=== PATIENT | male | born 1935 | race Caucasian/White ===

== ENCOUNTER 2016-11-08 15:33 | Emergency (ER) | payer MEDICARE, OTHER ==
[2016-11-08] MEDS ORDERED: ASPIRIN 81 MG TABLET, CHEWABLE PO ONE (15:46)
[2016-11-08 16:33] LABS: ABSOLUTE BASOPHILS # (AUTO) 0.1 10^3/uL (0.0-0.2); ABSOLUTE EOSINOPHILS # (AUTO) 0.1 10^3/uL (0.0-0.6); ABSOLUTE LYMPHOCYTES (AUTO) 1.7 10^3/uL (0.5-4.7); ABSOLUTE MONOCYTES (AUTO) 1.2 10^3/uL (0.1-1.4); ABSOLUTE NEUT (AUTO) 6.3 10^3/uL (1.7-8.2); BASOPHILS % (AUTO) 0.6 % (0-2); HEMATOCRIT 36.8 % (37.9-51.0); HEMOGLOBIN 12.6 g/dL (13.5-17.0); LYMPHOCYTES % (AUTO) 18.2 % (13-45); MEAN CORPUSCULAR HEMOGLOBIN 31.3 pg (27.0-33.4); MEAN CORPUSCULAR HGB CONC 34.3 g/dL (32.0-36.0); MEAN CORPUSCULAR VOLUME 91 fl (80-97); MONOCYTES % (AUTO) 12.7 % (3-13); RED BLOOD COUNT 4.03 10^6/uL (4.35-5.55); RED CELL DISTRIBUTION WIDTH 13.4 % (11.5-14.0); SEGMENTED NEUTROPHILS % (AUTO) 67.5 % (42-78); WHITE BLOOD COUNT 9.4 10^3/uL (4.0-10.5)
[2016-11-08 17:42] LABS: ALANINE AMINOTRANSFERASE 32 U/L (21-72); ALBUMIN 4.2 g/dL (3.5-5.0); ALKALINE PHOSPHATASE 94 U/L (38-126); ANION GAP 11 (5-19); ASPARTATE AMINO TRANSFERASE 23 U/L (17-59); BILIRUBIN,TOTAL 0.9 mg/dL (0.2-1.3); BLOOD UREA NITROGEN 19 mg/dL (7-20); CALCIUM 9.4 mg/dL (8.4-10.2); CARBON DIOXIDE 26 mmol/L (22-30); CHLORIDE 103 mmol/L (98-107); CREATINE KINASE 52 U/L (55-170); CREATININE RESULT 1.04 mg/dL (0.52-1.25); GLUCOSE 155 mg/dL (75-110); POTASSIUM 4.2 mmol/L (3.6-5.0); SODIUM 139.9 mmol/L (137-145); TOTAL PROTEIN 7.1 g/dL (6.3-8.2)
[2016-11-08 17:53] LABS: CREATINE KINASE MB 0.68 ng/mL (<4.55)
[2016-11-08 17:58] LABS: TROPONIN I 0.09 ng/mL
--- NOTE | 2016-11-08 21:50 | EKG REPORT ---
SEVERITY:- ABNORMAL ECG - ATRIAL FIBRILLATION INFERIOR INFARCT, AGE INDETERMINATE : Confirmed by: Patricio Jerry 08-Nov-2016 21:50:02
--- NOTE | 2016-11-08 21:50 | EKG REPORT ---
SEVERITY:- ABNORMAL ECG - SINUS RHYTHM PROBABLE INFERIOR INFARCT, AGE INDETERMINATE : Confirmed by: Patricio Jerry 08-Nov-2016 21:49:51
--- NOTE | 2016-11-08 22:10 | ER Document Report ---
ED General - General Chief Complaint: Chest Pain Stated Complaint: CHEST PAIN Mode of Arrival: Medic Information source: Patient, Relative Cannot obtain history due to: Dementia Notes: This is an 81-year-old gentleman who was brought from [facility] via EMS for concern of chest pain. Of note patient does have dementia and the history is limited. The majority of the history is obtained from his . Apparently the patient suffered a myocardial infarction one week ago today. Eyes, he was airlifted from the [facility] ER to [facility] where he went to the [facility] and received one stent. He was discharged 4 days ago to the rehabilitation facility. Today at about 1400 the patient's states that she found him in bed at the rehabilitation center in that he appeared uncomfortable. He stated that he looked pale and was acting chest as he did one week ago during his AR. He reported chest pain at the time. He was given sublingual nitroglycerin which resolved his symptoms. Transported to the ER for evaluation. He currently states that he feels fine and has no chest pain. states that he is at his normal baseline mental status at this point. - Related Data Allergies/Adverse Reactions: No Known Allergies Allergy (Unverified 08/17/12 18:17) Past Medical History - General Information source: Relative, [facility] Records - Social History Smoking Status: Unknown if Ever Smoked Family History: Reviewed & Not Pertinent - Past Medical History Cardiac Medical History: Reports: Hx Heart Attack, Hx Hypercholesterolemia Denies: Hx Coronary Artery Disease, Hx Hypertension - borderline Pulmonary Medical History: Denies: Hx Asthma, Hx Bronchitis, Hx COPD, Hx Pneumonia, Hx Tuberculosis Neurological Medical History: Denies: Hx Cerebrovascular Accident, Hx Seizures Musculoskeltal Medical History: Denies Hx Arthritis, Denies Hx Multiple Sclerosis Psychiatric Medical History: Reports: Hx Dementia Past Surgical History: Reports: Hx Appendectomy - 1940, Hx Tonsillectomy - 1940. Denies: Hx Pacemaker - Immunizations Hx Diphtheria, Pertussis, Tetanus Vaccination: Yes Physical Exam - Vital signs Vitals: Pulse Ox 96 11/08/16 15:55 - Notes Notes: PHYSICAL EXAMINATION: GENERAL: Well-appearing, well-nourished and in no acute distress. Pleasant and conversant, but confused secondary to dementia HEAD: Atraumatic, normocephalic. EYES: Pupils equal round and reactive to light, extraocular movements intact, sclera anicteric, conjunctiva are normal. ENT: nares patent, oropharynx clear without exudates. Moist mucous membranes. NECK: Normal range of motion, supple without lymphadenopathy LUNGS: Breath sounds clear to auscultation bilaterally and equal. No wheezes rales or rhonchi. HEART: Regular rate and rhythm without murmurs ABDOMEN: Soft, nontender, normoactive bowel sounds. No guarding, no rebound. No masses appreciated. EXTREMITIES: Normal range of motion, no pitting or edema. No cyanosis. NEUROLOGICAL: Cranial nerves grossly intact. No gross focal motor or sensory deficits. Alert and oriented to person and place PSYCH: Normal mood, normal affect. SKIN: Warm, Dry, normal turgor, no rashes or lesions noted. Course - Re-evaluation Re-evalutation: 11/08/16 22:09 Repeat troponin is essentially unchanged at 0.091 from 0.090. I consulted cardiology Dr. MERINO. As we were discussing the case, it was apparent that I did not have a current medication list for the patient. Dr. Roche requests that I call him back when this is available. Unfortunately, the patient's family has gone to eat and they are not available to provide any information at this time. Once the medication list is available I will again discuss the case with cardiology. Patient is pleasant and conversant and states that he feels fine. He has had no chest pain since being in the emergency department. 11/08/16 22:14 11/09/16 01:00 I obtained the medication list from [facility], and discussed with . He recommends that we place a nitroglycerin patch tonight and he will follow up with the patient in the clinic tomorrow morning. Discussed with family and they are comfortable with plan. Questions answered. 11/09/16 01:06 - Vital Signs Vital signs: Temp Pulse Resp BP Pulse Ox 24 H 152/114 H 96 11/09/16 02:03 11/09/16 02:03 11/09/16 01:29 - Laboratory Result Diagrams: 11/08/16 15:52 11/08/16 17:05 Laboratory results interpreted by me: 11/08/16 11/08/16 15:52 17:05 RBC 4.03 L Hgb 12.6 L Hct 36.8 L Glucose 155 H Creatine Kinase 52 L - EKG Interpretation by Me EKG shows normal: Sinus rhythm Rate: Normal Rhythm: NSR, APC's Additional EKG results interpreted by me: 11/09/16 01:02 old inferior infarct Discharge - Discharge Clinical Impression: Chest pain in adult Condition: Stable Disposition: HOME, SELF-CARE Additional Instructions: ANGINA EPISODE: Your physician has diagnosed the pain you experienced as an episode of angina. Angina occurs when a portion of the heart muscle temporarily lacks oxygen. It does not cause any permanent heart damage, but serves as a warning. Hospitalization is not necessary now. Evaluation of your cardiac condition , and medical therapy for angina will be necessary. It's important you be sure to keep all appointments and take medication exactly as prescribed. Angina is usually treated with a type of "nitrate" medication. This is available as ointment, pills, or sublingual (under the tongue) tablets. Depending on your clinical situation, other medications may be added to help control angina. These may include beta blockers or calcium blockers. If episodes of angina are occurring with increased frequency, or if chest pain lasts longer than 15 minutes or does not respond to nitroglycerin, you must seek emergency medical care immediately. NITRATES: Nitroglycerin and related longer-acting nitrate medications are used to prevent or treat attacks of angina. These medicines dilate blood vessels, decreasing the work of the heart, and improving its supply of oxygen. Many different forms are available, including sublingual tablets (used under the tongue), sprays, skin patches, and long-acting pills. If the particular form of medication you have been given is not working well for you, contact your doctor. Long-acting forms: Take exactly as prescribed. Sudden stopping of medication can provoke increased attacks. Sublingual tabs or spray: A headache will usually occur with use. Sit or lie while waiting for the pain to go away. If angina doesn't respond to three doses (five minutes apart), call for emergency assistance. FOLLOW-UP CARE: If you have been referred to a physician for follow-up care, call the physician s office for an appointment as you were instructed or within the next two days. If you experience worsening or a significant change in your symptoms, notify the physician immediately or return to the Emergency Department at any time for re-evaluation. As discussed, please call Dr Merino (cardiology) at [phone] later this morning for appointment. Return to the ER for any worsening chest pain or worsening concerns. Referrals: JIMENA NAJERA MD [ACTIVE STAFF] - Follow up tomorrow
[2016-11-09] MEDS ORDERED: NITROGLYCERIN 5 MG (0.2 MG/HR) PATCH.TD24 TD ONE (00:58)
[2016-11-09 02:29] VITALS: BP 152/114
== END 2016-11-09 02:10 | disposition home or self-care (01) ==
LOC: ER 15:33
DX: R07.9 Chest pain, unspecified (principal); I25.2 Old myocardial infarction; Z98.61 Coronary angioplasty status; F03.90 Unspecified dementia, unspecified severity, without behavioral disturbance, psychotic disturbance, mood disturbance, and anxiety
CPT/HCPCS: 93005; 99285; 36415; 82553; 82550; 85025; 80053; 84484; 71010; 93010; J3490